=== PATIENT | female | born 1970 | race Caucasian/White ===

== ENCOUNTER → 2017-01-25 | Outpatient (CLI) | payer BC ==
--- NOTE | 2017-01-27 09:27 | MM ---
Reason for exam: screening (asymptomatic). Last mammogram was performed 1 year ago. History: Benign excisional biopsy of the left breast, 2002. Physical Findings: A clinical breast exam by your physician is recommended on an annual basis and results should be correlated with mammographic findings. MG Screening Mammo w CAD Bilateral CC and MLO view(s) were taken. Prior study comparison: February 02, 2016, bilateral MG screening mammo w CAD. January 30, 2015, mammogram. The breast tissue is heterogeneously dense. This may lower the sensitivity of mammography. There is no discrete abnormality. No significant changes when compared with prior studies. ASSESSMENT: Negative, BI-RAD 1 RECOMMENDATION: Routine screening mammogram of both breasts in 1 year.
== END | disposition home or self-care (01) ==
LOC: RADMAMWWP 15:26
PROVIDERS: ATTEND Family Medicine
DX: Z12.31 Encounter for screening mammogram for malignant neoplasm of breast (principal)

== ENCOUNTER → 2018-03-02 | Outpatient (CLI) | payer BC ==
--- NOTE | 2018-03-08 09:53 | MM ---
Reason for exam: screening (asymptomatic). Last mammogram was performed 1 year and 1 month ago. History: Benign excisional biopsy of the left breast, 2002. Physical Findings: A clinical breast exam by your physician is recommended on an annual basis and results should be correlated with mammographic findings. MG 3D Screening Mammo W/Cad Bilateral CC and MLO view(s) were taken. Prior study comparison: January 25, 2017, bilateral MG screening mammo w CAD. February 02, 2016, bilateral MG screening mammo w CAD. The breast tissue is heterogeneously dense. This may lower the sensitivity of mammography. No significant changes when compared with prior studies. ASSESSMENT: Benign, BI-RAD 2 RECOMMENDATION: Routine screening mammogram of both breasts in 1 year.
== END | disposition home or self-care (01) ==
LOC: RADMAMWWP 15:17
PROVIDERS: ATTEND Family Medicine
DX: Z12.31 Encounter for screening mammogram for malignant neoplasm of breast (principal)
CPT/HCPCS: 77063; 77067

== ENCOUNTER → 2018-09-27 | Outpatient (CLI) | payer OTHER | LOC: LABWHC1 15:14 | PROVIDERS: ATTEND Otolaryngology | DX: J30.89 Other allergic rhinitis (principal) ==

== ENCOUNTER → 2018-10-16 | Outpatient (CLI) | payer OTHER ==
--- NOTE | 2018-10-16 11:59 | CT ---
EXAMINATION TYPE: CT sinus wo con DATE OF EXAM: 10/16/2018 COMPARISON: None HISTORY: Sinus pain and pressure for years CT DLP: 615.[address] of the paranasal sinuses was performed in the axial and coronal planes. Bone and soft tissue settings are submitted. There is polypoid lesion noted within the region of the nasopharynx wedging 1.9 x 2.2 x 1.0 cm. Direc t visualization is advised. No additional polypoid mass is identified at this time. The paranasal sinuses demonstrate normal aeration and development. The paranasal sinuses are free of mucosal thickening or air fluid level. The osteal meatal units are patent bilaterally. The nasal septum is midline. No bony destructive changes are seen within the field of view. IMPRESSION: There is polypoid lesion noted within the region of the nasopharynx wedging 1.9 x 2.2 x 1.0 cm. Direc t visualization is advised.
== END ==
LOC: RADCTMAIN 11:26
PROVIDERS: ATTEND Otolaryngology
DX: J33.0 Polyp of nasal cavity (principal); J32.9 Chronic sinusitis, unspecified
CPT/HCPCS: 70486

== ENCOUNTER → 2018-10-18 | Outpatient (CLI) | payer OTHER ==
--- NOTE | 2018-10-18 11:31 | US ---
EXAMINATION TYPE: US abdomen complete DATE OF EXAM: 10/18/2018 COMPARISON: NONE CLINICAL HISTORY: R10.10 Upper abdominal pain. Intermittent left flank pain x 5 months EXAM MEASUREMENTS: Liver Length: 14.0 cm Gallbladder Wall: 0.1 cm CBD: 0.4 cm Spleen: 7.5 cm Right Kidney: 9.5 x 3.7 x 4.8 cm Left Kidney: 9.8 x 4.2 x 5.1 cm Pancreas: wnl Liver: wnl Gallbladder: wnl Evidence for sonographic Gonsales's sign: no CBD: visualized portions wnl, limited by overlying bowel gas Spleen: wnl Right Kidney: wnl Left Kidney: wnl Upper IVC: wnl Abd Aorta: wnl The liver is homogenous. The intrahepatic portion of the IVC and proximal abdominal aorta are within normal limits. There is no evidence of cholelithiasis. Common bile duct is unremarkable. The visu alized portions of the pancreas are homogenous. The spleen is unremarkable. Kidneys are symmetric a nd free of hydronephrosis. No renal lesions are seen. IMPRESSION: Unremarkable abdominal ultrasound. No hydronephrosis or nephrolithiasis given the patient 's left flank pain.
== END | disposition home or self-care (01) ==
LOC: RADUSWWP 10:18
PROVIDERS: ATTEND Family Medicine
DX: R10.10 Upper abdominal pain, unspecified (principal)
CPT/HCPCS: 76700

== ENCOUNTER → 2018-12-07 | Outpatient (CLI) | payer OTHER ==
[2018-12-07 18:53] LABS: T4, Free (Free Thyroxine) 0.7 ng/dL (0.80-1.80)
== END | disposition home or self-care (01) ==
LOC: LABWHC1 14:14
PROVIDERS: ATTEND Internal Medicine Endocrinology, Diabetes & Metabolism
DX: E05.90 Thyrotoxicosis, unspecified without thyrotoxic crisis or storm (principal)
CPT/HCPCS: 36415; 84439; 84443; 84480

== ENCOUNTER → 2019-04-12 | Outpatient (CLI) | payer OTHER ==
--- NOTE | 2019-04-16 09:27 | MM ---
Reason for exam: screening (asymptomatic). Last mammogram was performed 1 year and 1 month ago. History: Benign excisional biopsy of the left breast, 2002. Taking hormonal contraceptives for 20 years. Physical Findings: A clinical breast exam by your physician is recommended on an annual basis and results should be correlated with mammographic findings. MG 3D Screening Mammo W/Cad Bilateral CC and MLO view(s) were taken. Prior study comparison: March 02, 2018, bilateral MG 3d screening mammo w/cad. January 25, 2017, bilateral MG screening mammo w CAD. The breast tissue is heterogeneously dense. This may lower the sensitivity of mammography. There is chronic nodularity in the right breast medially and posteriorly. No significant changes when compared with prior studies. ASSESSMENT: Benign, BI-RAD 2 RECOMMENDATION: Routine screening mammogram of both breasts in 1 year.
== END | disposition home or self-care (01) ==
LOC: RADMAMWWP 14:58
PROVIDERS: ATTEND Family Medicine
DX: Z12.31 Encounter for screening mammogram for malignant neoplasm of breast (principal)
CPT/HCPCS: 77063; 77067

== ENCOUNTER → 2019-06-26 | Outpatient (CLI) | payer OTHER ==
--- NOTE | 2019-06-26 16:22 | XR ---
EXAMINATION TYPE: XR cervical spine comp DATE OF EXAM: 06/26/2019 CLINICAL HISTORY: pain COMPARISON: NONE TECHNIQUE: Frontal, lateral, oblique, swimmers, and open mouth view of the cervical spine are obtaine d. FINDINGS: Moderate degenerative disc space narrowing extending from C4 through C7-T1. Grade 1 anterol isthesis of C7 on T1 measuring 3 mm. Ventral and dorsal spondylosis identified. IMPRESSION: Degenerative disc disease. Grade 1 anterolisthesis C7 on T1.
== END | disposition home or self-care (01) ==
LOC: RADXRMAIN 15:34
PROVIDERS: ATTEND Family Medicine
DX: M50.10 Cervical disc disorder with radiculopathy, unspecified cervical region (principal); M43.13 Spondylolisthesis, cervicothoracic region
CPT/HCPCS: 72050

== ENCOUNTER → 2020-05-26 | Outpatient (CLI) | payer OTHER ==
--- NOTE | 2020-06-02 10:20 | MM ---
Reason for exam: screening (asymptomatic). Last mammogram was performed 1 year and 1 month ago. History: Benign excisional biopsy of the left breast, 2002. Taking hormonal contraceptives for 30 years beginning at age 19. Physical Findings: A clinical breast exam by your physician is recommended on an annual basis and results should be correlated with mammographic findings. MG 3D Screening Mammo W/Cad Bilateral CC and MLO view(s) were taken. Prior study comparison: April 12, 2019, bilateral MG 3d screening mammo w/cad. March 02, 2018, bilateral MG 3d screening mammo w/cad. The breast tissue is heterogeneously dense. This may lower the sensitivity of mammography. No significant changes when compared with prior studies. ASSESSMENT: Negative, BI-RAD 1 RECOMMENDATION: Routine screening mammogram of both breasts in 1 year.
== END | disposition home or self-care (01) ==
LOC: RADMAMWWP 14:23
PROVIDERS: ATTEND Family Medicine
DX: Z12.31 Encounter for screening mammogram for malignant neoplasm of breast (principal)
CPT/HCPCS: 77063; 77067

== ENCOUNTER → 2020-08-29 | Outpatient (CLI) | payer OTHER ==
--- NOTE | 2020-08-29 15:10 | US ---
EXAMINATION TYPE: US thyroid st tissue head/neck DATE OF EXAM: 08/29/2020 COMPARISON: NONE CLINICAL HISTORY: E06.9 THYROIDITIS. Takes thyroid medication, upper neck palpables felt by patient GLAND SIZE: Right Lobe: 3.9 x 1.4 x 12 cm Overall Parenchyma: homogenous Left Lobe: 3.7 x 1.2 x 1.1 cm Overall Parenchyma: homogeneous Isthmus Thickness: 0.3 cm NODULES RIGHT: # of nodules measured on right: 1 1. 0.2 X 0.1 x 0.1 cm cystic, anechoic nodule in upper pole, which is wide as is tall, with smooth margins, without echogenic foci. LEFT: # of nodules measured on left: 0 ISTHMUS: # of nodules measured in the isthmus: 0 Bilateral neck scanned: multiple lymph nodes are seen bilaterally. In Right Submandibular Gland a lym ph node is seen within = 1.0 x 0.8 x 0.4cm with another lymph node seen inferior to this gland = 1.8 x 1.0 x 0.4cm. In left upper neck couple of lymph nodes are seen with most superior lymph node = 1.9 x 1.2 x 0.6cm. Multiple lymph nodes are seen inferior to left thyroid gland with largest most discreet = 1.1 x 0.4 x 0.3cm. IMPRESSION: Subcentimeter nodule right thyroid gland. Nonspecific shotty adenopathy as discussed above. 2017 ACR TI-RADS LEVEL: TR-RADS 2 - Not Suspicious: No FNA *Highest TI-RADS level nodule reported
== END | disposition home or self-care (01) ==
LOC: RADUSWWP 14:15
PROVIDERS: ATTEND Family Medicine
DX: E04.1 Nontoxic single thyroid nodule (principal); R59.0 Localized enlarged lymph nodes
CPT/HCPCS: 76536

== ENCOUNTER 2020-10-08 10:41 | Day surgery (SDC) | payer OTHER ==
[2020-10-07 08:55] VITALS: BMI 23.1
[2020-10-08] MEDS ORDERED: LACTATED RINGERS 1,000 ML IV ONE (10:56)
[2020-10-08] MEDS ORDERED: LIDOCAINE 1% (10MG/ML) FOR IV START INTRADERMA ONE (10:57)
[2020-10-08 11:11] VITALS: RESP 16; TEMP 98
[2020-10-08] MEDS ORDERED: LIDOCAINE 1% INJ 10MG/ML (20 ML MDV) ONE (11:39)
[2020-10-08] MEDS ORDERED: PROPOFOL 10 MG/ML 20 ML VIAL IV ONE (11:39)
--- NOTE | 2020-10-08 11:53 | P.PCN ---
Date of Procedure: 10/08/20 Procedure(s) Performed: BRIEF HISTORY: Patient is a 49-year-old pleasant white female scheduled for an elective colonoscopy as a part of screening for colorectal neoplasia. PROCEDURE PERFORMED: Colonoscopy. PREOPERATIVE DIAGNOSIS: Screening for colon cancer IV sedation per Anesthesia. PROCEDURE: After informed consent was obtained, the patient, was brought into the endoscopy unit. IV sedation was administered by Anesthesia under continuous monitoring. Digital rectal examination was normal. Initially the Olympus CF-160 flexible video colonoscope was then inserted in the rectum, gradually advanced into the cecum without any difficulty. Careful examination was performed as the scope was gradually being withdrawn. Ileocecal valve and the appendiceal orifice were visualized and appeared normal. Prep was excellent. Mucosa of the cecum, ascending colon, transverse colon, descending colon, sigmoid colon, and rectum appeared normal. Retroflexion was performed in the rectum and no lesions were seen. The patient tolerated the procedure well. IMPRESSION: Normal-appearing colon from rectum to cecum with no evidence of colorectal neoplasia . RECOMMENDATIONS: Findings of this examination were discussed with the patient as well as her family. She was advised to have a repeat screening colonoscopy in 10 years..
[2020-10-08 12:34] VITALS: BP 104/67; PULSE 70
== END 2020-10-08 12:45 | disposition home or self-care (01) ==
LOC: ORWHC2ENDO 10:41
PROVIDERS: ATTEND Internal Medicine Gastroenterology
DX: Z12.11 Encounter for screening for malignant neoplasm of colon (principal); E07.9 Disorder of thyroid, unspecified; Z79.82 Long term (current) use of aspirin; Z79.890 Hormone replacement therapy; Z79.899 Other long term (current) drug therapy; Z98.890 Other specified postprocedural states; Z88.8 Allergy status to other drugs, medicaments and biological substances
CPT/HCPCS: 81025; G0121; J2001; J2704; 45378

== ENCOUNTER → 2020-12-26 | Outpatient (CLI) | payer OTHER ==
--- NOTE | 2020-12-26 10:01 | CT ---
EXAMINATION TYPE: CT soft tissue neck w con DATE OF EXAM: 12/26/2020 COMPARISON: None HISTORY: Lymphadenitis-nonspecific CT DLP: 276.1 mGycm CONTRAST: CT scan of the neck is performed with IV Contrast, patient injected with 100 mL of Isovue 300. Contrast enhanced CT of the neck was performed from the skull base through the lung apices. AIRWAY: The supraglottic, glottic, and subglottic portions of the airway appear patent and free of mass. SALIVARY GLANDS: The submandibular and parotid glands are free of mass or inflammatory process. THYROID GLAND: No nodules or masses seen. LYMPH NODES: No adenopathy seen greater than 1cm. LUNG APICES: No nodule or mass is seen. OTHER: Vascular structures are patent. No significant degenerative change of the cervical spine. N o abscess seen. Small mucous retention cyst or polyp right maxillary sinus. IMPRESSION: No adenopathy identified measuring 1 cm.
== END | disposition home or self-care (01) ==
LOC: RADCTMAIN 07:59
PROVIDERS: ATTEND Family Medicine
DX: I88.9 Nonspecific lymphadenitis, unspecified (principal)
CPT/HCPCS: 70491; Q9967

== ENCOUNTER → 2021-03-02 | Outpatient (CLI) | payer OTHER ==
--- NOTE | 2021-03-02 14:57 | XR ---
EXAMINATION TYPE: XR ankle complete LT DATE OF EXAM: 03/02/2021 COMPARISON: NONE HISTORY: Pain TECHNIQUE: 3 views of the left ankle are submitted for evaluation. FINDINGS: There is no evidence for fracture or dislocation. Ankle mortise is intact. Soft tissues are within normal limits. IMPRESSION: 1. No evidence for acute fracture.
== END | disposition home or self-care (01) ==
LOC: RADXRMAIN 14:34
PROVIDERS: ATTEND Family Medicine
DX: M25.572 Pain in left ankle and joints of left foot (principal)

== ENCOUNTER → 2021-06-25 | Outpatient (CLI) | payer OTHER ==
--- NOTE | 2021-06-26 11:45 | MM ---
Reason for exam: screening (asymptomatic). Last mammogram was performed 1 year and 1 month ago. History: Benign excisional biopsy of the left breast, 2002. Taking hormonal contraceptives for 30 years beginning at age 19. Physical Findings: A clinical breast exam by your physician is recommended on an annual basis and results should be correlated with mammographic findings. MG 3D Screening Mammo W/Cad Bilateral CC and MLO view(s) were taken. Prior study comparison: May 26, 2020, bilateral MG 3d screening mammo w/cad. April 12, 2019, bilateral MG 3d screening mammo w/cad. The breast tissue is heterogeneously dense. This may lower the sensitivity of mammography. There is no discrete abnormality. ASSESSMENT: Negative, BI-RAD 1 RECOMMENDATION: Routine screening mammogram of both breasts in 1 year.
== END ==
LOC: RADMAMWWP 07:34
PROVIDERS: ATTEND Family Medicine
DX: Z12.31 Encounter for screening mammogram for malignant neoplasm of breast (principal)
CPT/HCPCS: 77063; 77067

== ENCOUNTER → 2022-07-09 | Outpatient (CLI) | payer OTHER ==
--- NOTE | 2022-07-12 08:50 | MM ---
Reason for Exam: Screening (asymptomatic). Last mammogram was performed 1 year(s) and 1 month(s) ago. Patient History: Menarche at age 12. First Full-Term at age 20. Postmenopausal. Currently using Hormonal Contraceptives, beginning at age 19 for 30 years. 2003, Benign Excisional Biopsy on the left side. Risk Values: Kalani 5 year model risk: 1.1%. NCI Lifetime model risk: 9.1%. Prior Study Comparison: 04/12/2019 Bilateral Screening Mammogram, [facility]. 05/26/2020 Bilateral Screening Mammogram, [facility]. 06/25/2021 Bilateral Screening Mammogram, [facility]. Tissue Density: The breast tissue is heterogeneously dense. This may lower the sensitivity of mammography. Findings: Analyzed By CAD. There is no suspicious group of microcalcifications or new suspicious mass in either breast. Overall Assessment: Negative, BI-RAD 1 Management: Screening Mammogram of both breasts in 1 year. A clinical breast exam by your physician is recommended on an annual basis and results should be correlated with mammographic findings. [facility] will attempt to contact patient to return for supplemental views and ultrasound if indicated. Electronically signed and approved by: Tk Dumont DO
== END | disposition home or self-care (01) ==
LOC: RADMAMWWP 16:35
PROVIDERS: ATTEND Family Medicine
DX: Z12.31 Encounter for screening mammogram for malignant neoplasm of breast (principal); Z78.0 Asymptomatic menopausal state
CPT/HCPCS: 77063; 77067

== ENCOUNTER → 2022-11-08 | Outpatient (CLI) | payer OTHER ==
--- NOTE | 2022-11-08 13:23 | CT ---
EXAMINATION TYPE: CT iac wo con DATE OF EXAM: 11/08/2022 COMPARISON: 09/22/2022 HISTORY: 51-year-old female H70.90, right sided mastoiditis. CT DLP: 150 mGycm Automated exposure control for dose reduction was used. TECHNIQUE: Contiguous high-resolution axial scanning of the temporal bones without contrast. Coronal reformatted images obtained. FINDINGS: There is no abnormality of visualized intracranial structures allowing for noncontrast thin cut techn ique. Right-sided tympanostomy tube again noted. External auditory canals are clear. The middle ear cavities are well pneumatized. There is improvement in the degree of pneumatization of the right mastoid air cells. Only the inferior right mastoid air cells remain opacified with fluid. No erosions of the fine intraosseous septa. There is no abnormality of middle ear ossicles. The round and oval windows are normal. There is no abnormality of bony labyrinths. The vestibular and cochlear aqueducts are well visualized. The facial nerve canal is normal bilaterally. The internal auditory canal and meati are symmetrical bilaterally. There is no evidence of fractures. Redemonstrated 2.3 cm mucosal retention cyst floor of the right maxillary sinus. Slight leftward nasa l septal deviation. Prior FESS with bilateral medial maxillary antrectomies. Orbits and globes appear intact. Reformatted images confirm above findings. IMPRESSION: 1. Indwelling right sided tympanostomy tube redemonstrated. 2. Partial interval improvement; residual fluid remains within the inferior mastoid air cells. 3. Redemonstrated prior FESS and a 2.3 cm mucosal retention cyst floor of the right maxillary sinus.
== END | disposition home or self-care (01) ==
LOC: RADCTMAIN 08:53
PROVIDERS: ATTEND Otolaryngology
DX: J34.89 Other specified disorders of nose and nasal sinuses (principal); H70.91 Unspecified mastoiditis, right ear
CPT/HCPCS: 70480

== ENCOUNTER → 2023-01-10 | Outpatient (CLI) | payer OTHER ==
--- NOTE | 2023-01-10 10:20 | CT ---
EXAMINATION TYPE: CT iac wo con DATE OF EXAM: 01/10/2023 COMPARISON: Prior CT IAC November 08, 2022 HISTORY: mastoiditis CT DLP: 142.7 mGycm. Automated Exposure Control for Dose Reduction was Utilized. TECHNIQUE: CT scan of internal auditory canal is performed without contrast, thin cut axial images ar e obtained, coronal reformatted images are also reviewed. FINDINGS: Right-sided tympanostomy tube redemonstrated. External auditory canals remain patent clear bilaterally. Persistent patchy opacification of the inferior right mastoid air cells similar to prior study. No suspicious opacification of the left mastoid air cells. The middle ear ossicles are symmetric and unremarkable. There is no evidence of suspicious surroundi ng soft tissue density to suggest cholesteatoma. The scutum is preserved bilaterally. The cochlea and the semicircular canals are symmetric and unremarkable. Vestibular aqueduct and inte rnal carotid canal appear unremarkable. Temporomandibular joints are maintained bilaterally. A mucous retention cyst or polyp in the inferior right maxillary sinus is only partially imaged on current study. Slightly larger 6 mm cyst or polyp superior left maxillary sinus axial image 25 has enlarged since prior study. Remainder of the paranas al sinuses are clear. Visualized portion brain parenchyma is felt within normal limits. IMPRESSION: Stable partial opacification of the inferior right mastoid air cells. Residual mastoidit is cannot be excluded. No significant change from most recent prior CT.
== END | disposition home or self-care (01) ==
LOC: RADCTMAIN 09:34
PROVIDERS: ATTEND Otolaryngology
DX: H70.11 Chronic mastoiditis, right ear (principal); J34.89 Other specified disorders of nose and nasal sinuses
CPT/HCPCS: 70480

== ENCOUNTER → 2023-04-07 | Outpatient (CLI) | payer OTHER ==
--- NOTE | 2023-04-07 12:09 | MR ---
EXAMINATION TYPE: MR brain wo/w con DATE OF EXAM: 04/07/2023 COMPARISON: 01/09/2014 HISTORY: Cervicogenic headaches. TECHNIQUE: Multiplanar, multisequence images of the brain and brainstem is performed without and with IV contras t, utilizing 6.5 mL intravenous Gadavist . FINDINGS: Diffusion weighted images demonstrate no evidence of a recent infarct or other diffusion ab normality. There is no extra-axial fluid collection or significant white matter signal abnormality. The ventricular system and cisternal spaces are normal in size and appearance. The brain volume is age appropriate. Midline structures demonstrate normal morphology. The craniocervical junction appears within normal limits. Post contrast images demonstrate no abnormal enhancement. The dural venous sinuses appear pa tent. The visualized sinuses are clear and the globes are intact. IMPRESSION: 1. No acute intracranial process. Pituitary gland is mildly prominent in size, correlate clinically. 2. Mild sinusitis and moderate right mastoiditis.
== END | disposition home or self-care (01) ==
LOC: RADMRIMAIN 09:05
PROVIDERS: ATTEND Family Medicine
DX: G44.86 Cervicogenic headache (principal); J32.9 Chronic sinusitis, unspecified; H70.11 Chronic mastoiditis, right ear
CPT/HCPCS: 70553; A9585

== ENCOUNTER → 2023-07-07 | Outpatient (CLI) | payer OTHER ==
--- NOTE | 2023-07-08 10:00 | CT ---
EXAMINATION TYPE: CT iac wo con CT DLP: 150 mGycm, Automated exposure control for dose reduction was used. DATE OF EXAM: 07/07/2023 9:21 AM INDICATION: Patient age:Female; 52 years old; Reason for study: H70.11 CHRONIC mastoiditis RIGHT EAR; [facility]. COMPARISON: . TECHNIQUE: Multiple thin axial images were obtained through the temporal bones and internal auditory canals. Additional coronal reformatted images were obtained. No IV contrast was utilized. STENVER a nd POSCHL views were created on a separate work station. CT Contrast: Contrast used: none. FINDINGS: Right Temporal Bone: External Ear: The external auditory canal is unremarkable, The tympanic membrane is present and unrem arkable. Middle Ear: The ossicles demonstrate a normal appearance. Prussak's space is clear and the scutum i s intact. There is no evidence of osseous erosion and the tegmen tympani is intact. Inner Ear: Cochlea, vestibule and semi circular canals are unremarkable. No evidence of carotid farhat l dehiscence. Two and a half turns of the cochlea are identified. The vestibular aqueduct is not enl arged. Mastoid Air Cells:The mastoid air cells are opacified most pronounced inferiorly.. The tegmen mastoid eum is intact. There is no osseous erosion visualized. The aditus ad antrum is clear. Internal Auditory Canal: The internal auditory canal is unremarkable. Left Temporal Bone: External Ear: The external auditory canal is unremarkable, The tympanic membrane is present and unrem arkable. Middle Ear: The ossicles demonstrate a normal appearance. Prussak's space is clear and the scutum i s intact. There is no evidence of osseous erosion and the tegmen tympani is intact. Inner Ear: Cochlea, vestibule and semi circular canals are unremarkable. No evidence of carotid farhat l dehiscence. Two and a half turns of the cochlea are identified. The vestibular aqueduct is not enl arged. Mastoid Air Cells: The mastoid air cells are clear. The tegmen mastoideum is intact. . The aditus ad antrum is clear. Internal Auditory Canal: The internal auditory canal is unremarkable. Mild mucosal thickening with retention cyst in the right maxillary sinus partially visualized. IMPRESSION: 1. Trace right mastoid air cell effusion. No evidence for osseous erosion at this time. 2. Mild right paranasal sinus disease.
== END | disposition home or self-care (01) ==
LOC: RADCTMAIN 09:02
PROVIDERS: ATTEND Otolaryngology
DX: H70.11 Chronic mastoiditis, right ear (principal); J34.89 Other specified disorders of nose and nasal sinuses; H74.8X1 Other specified disorders of right middle ear and mastoid
CPT/HCPCS: 70480

== ENCOUNTER → 2023-07-13 | Outpatient (CLI) | payer OTHER ==
--- NOTE | 2023-07-17 18:06 | MM ---
Reason for Exam: Screening (asymptomatic). Last screening mammogram was performed 12 month(s) ago. Patient History: Menarche at age 12. First Full-Term at age 20. Postmenopausal. Currently using Hormonal Contraceptives, beginning at age 19 for 30 years. 2002, Benign Excisional Biopsy on the left side. Risk Values: Kalani 5 year model risk: 1.2%. NCI Lifetime model risk: 9.0%. Prior Study Comparison: 05/26/2020 Bilateral Screening Mammogram, [facility]. 06/25/2021 Bilateral Screening Mammogram, [facility]. 07/09/2022 Bilateral MG 3D screening mammo w/cad, [facility]. Tissue Density: The breast tissue is heterogeneously dense. This may lower the sensitivity of mammography. Findings: Analyzed By CAD. There is no suspicious group of microcalcifications or new suspicious mass in either breast. Overall Assessment: Negative, BI-RAD 1 Management: Screening Mammogram of both breasts in 1 year. . Patient should continue monthly self-breast exams. A clinical breast exam by your physician is recommended on an annual basis. This exam should not preclude additional follow-up of suspicious palpable abnormalities. Note on Kalani scores and lifetime risk: 1. A Kalani score greater than 3% is considered moderate risk. If this is the case, consider specialist referral to assess eligibility for a risk reducing agent. 2. If overall lifetime risk for the development of breast cancer is 20% or higher, the patient may qualify for future screening with alternating mammogram and breast MRI. Electronically signed and approved by: Piedad Baker M.D. Radiologist
== END | disposition home or self-care (01) ==
LOC: RADMAMWWP 14:17
PROVIDERS: ATTEND Family Medicine
DX: Z12.31 Encounter for screening mammogram for malignant neoplasm of breast (principal); Z78.0 Asymptomatic menopausal state
CPT/HCPCS: 77063; 77067

== ENCOUNTER → 2024-05-26 | Outpatient (CLI) | payer OTHER ==
--- NOTE | 2024-05-26 18:03 | MR ---
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 COMPARISON: 04/07/2023 TECHNIQUE: Multi planar, multi sequence imaging was performed through the brain. Specialized thin s equences were obtained through the pituitary gland/sella turcica. Pre-and post gadolinium sequences were obtained. IV Contrast: 6 cc Gadavist FINDINGS: The tran-white junctions, ventricular system, and basal cisterns appear unremarkable. The morphology of the pituitary gland is within normal limits. The pituitary stalk is not deviated. After administ ration of gadolinium, homogeneous pituitary enhancement is seen. The intracranial arterial flow voids are intact. IMPRESSION: 1. No pituitary gland abnormality. No convincing MRI evidence for pituitary micro or macroadenoma. If the patient has abnormal labs and/or symptoms possibly related to pituitary neoplasm I would conside r repeat MRI in 6-12 months time to reassess. 2. No evidence of intracranial mass nor acute/subacute CVA. [facility], , 05/26/2024 6:01 PM
== END | disposition home or self-care (01) ==
LOC: RADMRIMAIN 14:48
PROVIDERS: ATTEND Family Medicine
DX: E23.7 Disorder of pituitary gland, unspecified (principal)
CPT/HCPCS: 70553

== ENCOUNTER → 2024-07-24 | Outpatient (CLI) | payer OTHER ==
--- NOTE | 2024-07-24 11:27 | MM ---
Reason for Exam: Screening (asymptomatic). Last screening mammogram was performed 12 month(s) ago. Patient History: Menarche at age 12. First Full-Term at age 20. Postmenopausal. Hormonal Contraceptives, starting at age 19 for 30 years. 2002, Benign Excisional Biopsy on the left side. Risk Values: Kalani 5 year model risk: 1.2%. NCI Lifetime model risk: 8.8%. Prior Study Comparison: 06/25/2021 Bilateral Screening Mammogram, [facility]. 07/09/2022 Bilateral MG 3D screening mammo w/cad, [facility]. 07/13/2023 Bilateral MG 3D screening mammo w/cad, [facility]. Tissue Density: There are scattered areas of fibroglandular density. Findings: Analyzed By CAD. Right breast: There is no suspicious group of microcalcifications or new suspicious mass. Left breast: There is no suspicious group of microcalcifications or new suspicious mass. Overall Assessment: Negative, BI-RAD 1 Management: Screening Mammogram of both breasts in [address] [facility] will attempt to contact patient to return for supplemental views and ultrasound if indicated. Patient should continue monthly self-breast exams. A clinical breast exam by your physician is recommended on an annual basis. This exam should not preclude additional follow-up of suspicious palpable abnormalities. Note on Kalani scores and lifetime risk: 1. A Kalani score greater than 3% is considered moderate risk. If this is the case, consider specialist referral to assess eligibility for a risk reducing agent. 2. If overall lifetime risk for the development of breast cancer is 20% or higher, the patient may qualify for future screening with alternating mammogram and breast MRI. [facility], , 07/24/2024 11:21 AM. Electronically signed and approved by: Tk Dumont DO
== END | disposition home or self-care (01) ==
LOC: RADMAMWWP 10:19
PROVIDERS: ATTEND Family Medicine
DX: Z12.31 Encounter for screening mammogram for malignant neoplasm of breast (principal); Z78.0 Asymptomatic menopausal state; R92.323 Mammographic fibroglandular density, bilateral breasts
CPT/HCPCS: 77063; 77067